=== PATIENT | male | born 1955 | race Caucasian/White ===

== ENCOUNTER 2018-11-26 22:05 | Outpatient (REF) | payer MEDICARE, SELFPAY ==
[2018-11-26 22:51] LABS: Calculated LDL 86; Cholesterol 162 mg/dL (50-200); HDL Cholesterol 61 mg/dL (40-60); TSH 1.18 uIU/mL (0.358-3.74); Triglyceride 78 mg/dL (30-150)
[2018-11-26 22:57] LABS: Hemoglobin A1C 6.1 % (4.5-6.2)
== END 2018-11-26 22:25 ==
LOC: NCHCN 22:05
PROVIDERS: PCP Internal Medicine; Visit Provider Internal Medicine
DX: I48.91 Unspecified atrial fibrillation (principal); R73.9 Hyperglycemia, unspecified
CPT/HCPCS: 80061; 83721; 83036; 84443

== ENCOUNTER 2023-03-11 15:49 | Outpatient (REF) | payer MEDICARE, SELFPAY ==
[2023-03-11 17:51] LABS: HCT 44.9 % (40.0-50.0); HGB 14.8 g/dL (13.5-17.5); MCH 31.4 pg (27.0-33.0); MCV 95 fL (80-95); MPV 12.2 fL (8.0-11.0); Platelet Count 205 10^3/uL (130-400); RBC 4.72 10^6/uL (4.36-5.78); RDW 13.2 % (11.8-14.1)
[2023-03-11 19:53] LABS: ALT 37 U/L (16-63); AST 32 U/L (15-37); Albumin 3.6 g/dL (3.4-5.0); Alkaline Phosphatase 66 U/L (46-116); Anion Gap 9.4 mmol/L (3-11); BUN 22 mg/dL (7-18); Bilirubin, Total 0.5 mg/dL (0.2-1.0); CO2 26.6 mmol/L (21.0-32.0); CREATININE 1.2 mg/dL (0.70-1.30); Calcium 9.5 mg/dL (8.5-10.1); Calculated LDL 84 mg/dL (<100); Chloride 102 mmol/L (98-107); Cholesterol 152 mg/dL (<200); Estimated GFR 65.06 (mL/min/1.73m2); Glucose 97 mg/dL (74-106); HDL Cholesterol 54 mg/dL (40-60); Potassium 4.2 mmol/L (3.5-5.1); Sodium 138 mmol/L (136-145); Total Protein 8.3 g/dL (6.4-8.2); Triglyceride 72 mg/dL (<150)
[2023-03-11 19:54] LABS: Hemoglobin A1C 5.7 % (<5.7)
== END 2023-03-11 15:50 | disposition home or self-care (01) ==
LOC: NCHCN 15:49
PROVIDERS: PCP Internal Medicine; Visit Provider Internal Medicine
DX: R73.03 Prediabetes (principal); I48.91 Unspecified atrial fibrillation; R79.89 Other specified abnormal findings of blood chemistry
CPT/HCPCS: 80053; 80061; 85027; 83036

== ENCOUNTER 2024-03-17 13:49 | Outpatient (REF) | payer MEDICARE, SELFPAY ==
[2024-03-17 15:38] LABS: ALT 26 U/L (16-63); AST 34 U/L (15-37); Alkaline Phosphatase 64 U/L (46-116); BUN 16 mg/dL (7-18); Bilirubin, Total 0.79 mg/dL (0.2-1.0); Calcium 9.7 mg/dL (8.5-10.1); Chloride 103 mmol/L (98-107); Digoxin 1.23 ng/mL (0.90-2.00); Estimated GFR 80.47 (mL/min/1.73m2); Glucose 91 mg/dL (74-106); Potassium 4.6 mmol/L (3.5-5.1); Sodium 139 mmol/L (136-145); Total Protein 9.1 g/dL (6.4-8.2)
== END 2024-03-17 13:50 | disposition home or self-care (01) ==
LOC: NCHCN 13:49
PROVIDERS: PCP Internal Medicine; Visit Provider Internal Medicine
DX: Z51.81 Encounter for therapeutic drug level monitoring (principal)
CPT/HCPCS: 80053; 80162

== ENCOUNTER 2025-03-15 17:36 | Outpatient (REF) | payer MEDICARE, SELFPAY ==
[2025-03-15 21:34] LABS: Digoxin 1.13 ng/mL (0.90-2.00)
== END 2025-03-15 17:37 | disposition home or self-care (01) ==
LOC: NCHCN 17:36
PROVIDERS: PCP Internal Medicine; Visit Provider Internal Medicine
DX: Z51.81 Encounter for therapeutic drug level monitoring (principal)
CPT/HCPCS: 80162